=== PATIENT | female | born 1970 | race Caucasian/White ===

== ENCOUNTER 2017-11-24 18:00 | Emergency (ER) | payer OTHER ==
[~2017-11-24] VITALS: Ht 157.5 cm; Wt 74.8 kg
[2017-11-24] MEDS ORDERED: CATAFLAN (19:29)
[2017-11-25] MEDS ORDERED: PEPCID40 MG PO (05:31)
[2017-11-25] MEDS ORDERED: LEVSIN/SL0.125 MG SL (05:31)
[2017-11-25] MEDS ORDERED: ZOFRAN ODT8 MG PO (05:31)
== END 2017-11-25 06:05 | disposition home or self-care (01) ==
LOC: ER 18:00
DX: K52.9 Noninfective gastroenteritis and colitis, unspecified (principal)

== ENCOUNTER 2019-10-16 11:22 | Emergency (ER) | payer OTHER ==
[~2019-10-16] VITALS: Ht 157.5 cm; Wt 63.5 kg
[~2019-10-16 11:22] MED LIST: CATAFLAN; LEVSIN/SL0.125 MG SL; PEPCID40 MG PO; ZOFRAN ODT8 MG PO
[2019-10-16] MEDS ORDERED: DUI500 PO (12:27)
[2019-10-16] MEDS ORDERED: MUPIROCIN1 G1 TOP (12:27)
== END 2019-10-16 12:56 | disposition home or self-care (01) ==
LOC: ER 11:22
DX: S51.851A Open bite of right forearm, initial encounter (principal); W55.01XA Bitten by cat, initial encounter; Y93.89 Activity, other specified; Y92.89 Other specified places as the place of occurrence of the external cause; Y99.8 Other external cause status

== ENCOUNTER → 2019-10-21 | Emergency (ER) | payer OTHER ==
[~2019-10-21] MED LIST changes: +DUI500 PO; +MUPIROCIN1 G1 TOP
== END | disposition left against medical advice (07) ==
LOC: ER 20:22
DX: Z53.20 Procedure and treatment not carried out because of patient's decision for unspecified reasons (principal)

== ENCOUNTER 2022-10-30 23:53 | Emergency (ER) | payer OTHER ==
[~2022-10-30] VITALS: Ht 157.5 cm; Wt 62.6 kg
[2022-10-31] MEDS ORDERED: GENTAMICIN SULFA5 ML OP (08:14)
[2022-10-31] MEDS ORDERED: ZYNCOF 20-400120 ML PO (08:14)
[2022-10-31] MEDS ORDERED: DOLOGESIC-DF 51 EACH PO (08:14)
== END 2022-10-31 08:35 ==
LOC: ER 23:53
DX: B34.9 Viral infection, unspecified (principal)